=== PATIENT | male | born 1945 | race Two or more races ===

== ENCOUNTER 2023-02-05 14:10 | Inpatient (IN) | payer OTHER ==
[~2023-02-05] VITALS: Ht 170.2 cm; Wt 70.8 kg
[2023-02-05] MEDS ORDERED: CARB1TAB21 PO (15:00)
[2023-02-05] MEDS ORDERED: LISI20TA30 PO (15:00)
[2023-02-05] MEDS ORDERED: IV NS 0.9% 1,000 ML BAG IV ONE (15:00)
[2023-02-05] MEDS ORDERED: ASPI-1169 PO (15:00)
[2023-02-05] MEDS ORDERED: ATOR20TA PO (15:00)
[2023-02-05] MEDS ORDERED: TAMS-12 PO (15:00)
[2023-02-05] MEDS ORDERED: METF-440 PO (15:00)
[2023-02-05] MEDS ORDERED: METO-357 PO (15:00)
[2023-02-05] MEDS ORDERED: FLUO10TA PO (15:00)
[2023-02-05] MEDS ORDERED: CLON0.5T4 PO (15:00)
[2023-02-05] MEDS ORDERED: ALLO300T2 PO (15:00)
[2023-02-05 15:15] LABS: BASOPHILS % (AUTO) 0.8 % (0.0-2.0); EOSINOPHILS % (AUTO) 0.8 % (0.0-6.0); HEMATOCRIT 43 % (39-51); HEMOGLOBIN 13.6 g/dL (13.5-17.5); LYMPHOCYTES % (AUTO) 20.9 % (20.0-44.0); MEAN CORPUSCULAR HEMOGLOBIN 26 PG (26.0-33.0); MEAN CORPUSCULAR HGB CONC 32 g/dl (31.0-36.0); MEAN CORPUSCULAR VOLUME 81 fL (80-96); MONOCYTES # (AUTO) 0.7 K/uL (0.1-1.30); MONOCYTES % (AUTO) 14.7 % (2.0-12.0); NEUTROPHILS % (AUTO) 62.8 % (43.0-81.0); PLATELET COUNT (AUTO) 247 K/uL (150-450); RED BLOOD CELL COUNT(AUTO) 5.28 MIL/uL (4.5-6.0); RED CELL DISTRIBUTION WIDTH 16.5 % (11.5-15.0); WHITE BLOOD COUNT (AUTO) 4.9 K/uL (4.3-11.0)
[2023-02-05 15:28] LABS: CALCIUM, SERUM 9.8 mg/dL (8.5-10.1); CREATININE 1.1 mg/dL (0.6-1.3); POTASSIUM 3.7 mmol/L (3.5-5.1)
[2023-02-05 15:33] LABS: BILIRUBIN,DIRECT 0.3 mg/dL (0.0-0.2); BILIRUBIN,TOTAL 0.7 mg/dL (0.2-1.0); TOTAL PROTEIN, SERUM 8.4 g/dL (6.4-8.2)
[2023-02-05 15:59] LABS: APPEARANCE,URINE CLEAR (CLEAR); BILIRUBIN,URINE NEGATIVE (NEGATIVE); BLOOD, URINE NEGATIVE Ery/uL (NEGATIVE); COLOR,URINE YELLOW (YELLOW); KETONES,URINE TRACE mg/dL (NEGATIVE); LEUKOCYTE ESTERASE ,URINE NEGATIVE (NEGATIVE); NITRITE, URINE NEGATIVE (NEGATIVE); PROTEIN,URINE NEGATIVE (NEGATIVE); UGLUCOSE NEGATIVE (NEGATIVE)
[2023-02-05 16:11] LABS: RBC,URINE 0-2 /HPF (0-2); WBC,URINE 0-2 /HPF (0-3)
[2023-02-05 16:12] LABS: ADD URINE CULTURE NO; BACTERIA,URINE Few /HPF (None Seen); SQUAMOUS EPITHELIAL CELL,UR Few /HPF (None Seen)
[2023-02-05 22:06] VITALS: BP 186/96; TEMP 98.4; O2SAT 97
[2023-02-05 22:47] VITALS: BP 158/73
[2023-02-05] MEDS: IV LR 1000 ML 1,000 ML IV PRN (22:58)
[2023-02-05] MEDS ORDERED: Z GUARD REMEDY 4 OZ OINT TP PRN (23:00)
[2023-02-05] MEDS ORDERED: ACETAMINOPHEN 325 MG TABLET PO PRN (23:00)
[2023-02-05] MEDS ORDERED: MAGNESIUM HYDROXIDE 30 ML UDC PO PRN (23:00)
[2023-02-05] MEDS ORDERED: ONDANSETRON HCL/PF 4 MG/2 ML VIAL IVP PRN (23:00)
[2023-02-05] MEDS ORDERED: TEMAZEPAM 7.5 MG CAPSULE PO PRN (23:00)
[2023-02-05] MEDS ORDERED: DEXTROSE 50%-WATER 50 ML DISP.SYRIN IV PRN (23:00)
[2023-02-05] MEDS ORDERED: CARBIDOPA/LEVODOPA 25/100 MG 1 UDTAB PO SCH (23:00)
[2023-02-05] MEDS: ENOXAPARIN SODIUM 40 MG/0.4 ML DISP.SYRIN SQ SCH (23:10)
[2023-02-05] MEDS: INSULIN REGULAR, HUMAN 100 UNIT/ML 3 ML VIAL SQ PRN (23:21)
[2023-02-06 06:24] LABS: BASOPHILS % (AUTO) 0.6 % (0.0-2.0); HEMATOCRIT 39 % (39-51); HEMOGLOBIN 12.5 g/dL (13.5-17.5); LYMPHOCYTES # (AUTO) 1.2 K/uL (0.8-4.8); LYMPHOCYTES % (AUTO) 26.6 % (20.0-44.0); MEAN CORPUSCULAR HEMOGLOBIN 26 PG (26.0-33.0); MEAN CORPUSCULAR HGB CONC 32 g/dl (31.0-36.0); MEAN CORPUSCULAR VOLUME 81 fL (80-96); MONOCYTES # (AUTO) 0.7 K/uL (0.1-1.30); MONOCYTES % (AUTO) 15.5 % (2.0-12.0); NEUTROPHILS # (AUTO) 2.6 K/uL (1.8-8.9); NEUTROPHILS % (AUTO) 56.3 % (43.0-81.0); PLATELET COUNT (AUTO) 235 K/uL (150-450); RED BLOOD CELL COUNT(AUTO) 4.86 MIL/uL (4.5-6.0); RED CELL DISTRIBUTION WIDTH 16.3 % (11.5-15.0); WHITE BLOOD COUNT (AUTO) 4.6 K/uL (4.3-11.0)
[2023-02-06 06:47] LABS: CALCIUM, SERUM 8.9 mg/dL (8.5-10.1); CREATININE 0.9 mg/dL (0.6-1.3); MAGNESIUM 1.4 mg/dL (1.8-2.4); PHOSPHORUS 3.4 mg/dL (2.5-4.9); POTASSIUM 3.2 mmol/L (3.5-5.1)
[2023-02-06] MEDS: INSULIN REGULAR, HUMAN 100 UNIT/ML 3 ML VIAL SQ PRN ×4 (07:10→21:52)
[2023-02-06] MEDS: BLOOD SUGAR DIAGNOSTIC 1 EACH STRIP IN SCH ×4 (07:10→21:52)
[2023-02-06 07:30] VITALS: BP 152/99; TEMP 97.9; O2SAT 98
[2023-02-06] MEDS: METFORMIN 500 MG TABLET PO SCH ×2 (07:39→17:06)
[2023-02-06] MEDS: PANTOPRAZOLE 40 MG TABLET.DR PO SCH (07:39)
[2023-02-06] MEDS: TAMSULOSIN 0.4 MG CAP.SR.24H PO SCH (08:08)
[2023-02-06] MEDS: Fluoxetine 10 mg capsule PO SCH (08:08)
[2023-02-06] MEDS: ALLOPURINOL 100 MG TABLET PO SCH (08:08)
[2023-02-06] MEDS: ASPIRIN 81 MG TAB.CHEW PO SCH (08:08)
[2023-02-06] MEDS: LISINOPRIL (20MG) 20 MG TABLET PO SCH (08:09)
[2023-02-06] MEDS: METOPROLOL SUCCINATE 50 MG TAB.SR.24H PO SCH ×2 (08:09→20:24)
[2023-02-06] MEDS: ATORVASTATIN 10 MG TABLET PO SCH (08:17)
[2023-02-06] MEDS ORDERED: POTASSIUM CHLORIDE 20 MEQ POWDER PACKET PO ONE (11:00)
[2023-02-06] MEDS: Magnesium 1GM/D5W 100ML PREMIX 100 ML IV SCH ×4 (11:18→14:42)
[2023-02-06 14:21] LABS: THYROID STIMULATING HORMONE 1.286 uIU/mL (0.358-3.74)
[2023-02-06 16:00] VITALS: BP 135/70; TEMP 97.3; O2SAT 97
[2023-02-06] MEDS: GLUCERNA SHAKE 237 ML CAN PO SCH (17:06)
[2023-02-06] MEDS: IV LR 1000 ML 1,000 ML IV PRN (18:52)
[2023-02-06 20:00] VITALS: BP 136/68; TEMP 99.1; O2SAT 98
[2023-02-06] MEDS: ENOXAPARIN SODIUM 40 MG/0.4 ML DISP.SYRIN SQ SCH (20:25)
[2023-02-07] MEDS: BLOOD SUGAR DIAGNOSTIC 1 EACH STRIP IN SCH ×4 (06:49→22:25)
[2023-02-07] MEDS: INSULIN REGULAR, HUMAN 100 UNIT/ML 3 ML VIAL SQ PRN ×3 (06:49→17:11)
[2023-02-07 07:30] VITALS: BP 169/87; TEMP 99.1; O2SAT 94
[2023-02-07] MEDS: PANTOPRAZOLE 40 MG TABLET.DR PO SCH (07:49)
[2023-02-07] MEDS: GLUCERNA SHAKE 237 ML CAN PO SCH ×2 (08:15→17:10)
[2023-02-07] MEDS: ALLOPURINOL 100 MG TABLET PO SCH (08:15)
[2023-02-07] MEDS: LISINOPRIL (20MG) 20 MG TABLET PO SCH (08:16)
[2023-02-07] MEDS: ATORVASTATIN 10 MG TABLET PO SCH (08:16)
[2023-02-07] MEDS: ASPIRIN 81 MG TAB.CHEW PO SCH (08:16)
[2023-02-07] MEDS: Fluoxetine 10 mg capsule PO SCH (08:16)
[2023-02-07] MEDS: METOPROLOL SUCCINATE 50 MG TAB.SR.24H PO SCH ×2 (08:16→21:24)
[2023-02-07] MEDS: METFORMIN 500 MG TABLET PO SCH ×2 (08:16→17:11)
[2023-02-07] MEDS: TAMSULOSIN 0.4 MG CAP.SR.24H PO SCH (08:16)
[2023-02-07] MEDS: IV LR 1000 ML 1,000 ML IV PRN (10:44)
[2023-02-07] MEDS ORDERED: MAGNESIUM OXIDE 400 MG TABLET PO ONE (11:00)
[2023-02-07 16:00] VITALS: BP 137/76; TEMP 98.8; O2SAT 95
[2023-02-07 20:00] VITALS: BP 158/82; TEMP 99; O2SAT 97
[2023-02-07] MEDS: ENOXAPARIN SODIUM 40 MG/0.4 ML DISP.SYRIN SQ SCH (21:30)
[2023-02-08] MEDS: IV LR 1000 ML 1,000 ML IV PRN (02:39)
[2023-02-08] MEDS: BLOOD SUGAR DIAGNOSTIC 1 EACH STRIP IN SCH ×2 (06:37→12:50)
[2023-02-08 08:00] VITALS: BP 163/94; TEMP 99; O2SAT 98
[2023-02-08] MEDS: GLUCERNA SHAKE 237 ML CAN PO SCH (08:00)
[2023-02-08] MEDS: ALLOPURINOL 100 MG TABLET PO SCH (09:58)
[2023-02-08] MEDS: METOPROLOL SUCCINATE 50 MG TAB.SR.24H PO SCH (09:59)
[2023-02-08] MEDS: LISINOPRIL (20MG) 20 MG TABLET PO SCH (09:59)
[2023-02-08] MEDS: PANTOPRAZOLE 40 MG TABLET.DR PO SCH (09:59)
[2023-02-08] MEDS: ATORVASTATIN 10 MG TABLET PO SCH ×2 (10:00→10:04)
[2023-02-08] MEDS: TAMSULOSIN 0.4 MG CAP.SR.24H PO SCH (10:00)
[2023-02-08] MEDS: Fluoxetine 10 mg capsule PO SCH (10:00)
[2023-02-08] MEDS: METFORMIN 500 MG TABLET PO SCH (10:04)
[2023-02-08] MEDS: ASPIRIN 81 MG TAB.CHEW PO SCH (10:04)
[2023-02-08] MEDS: clonazePAM 0.5 MG TABLET PO PRN ×2 (12:44→12:45)
[2023-02-08] MEDS: INSULIN REGULAR, HUMAN 100 UNIT/ML 3 ML VIAL SQ PRN (12:52)
[2023-02-08] MEDS ORDERED: hydrALAZINE HCL 25 MG TABLET PO SCH (14:00)
[2023-02-08 16:00] VITALS: BP 171/86; TEMP 99.4; O2SAT 98
[2023-02-08 16:19] VITALS: BP 171/86
[2023-02-08] MEDS ORDERED: hydrALAZINE HCL 25 MG TABLET PO ONE (16:30)
== END 2023-02-08 17:30 | DRG 641 ==
LOC: ER 14:22 → MED 20:45
PROVIDERS: ADMIT Nurse Practitioner Family; ATTEND Internal Medicine
DX: R62.7 Adult failure to thrive (principal); E86.0 Dehydration; G20.A1 Parkinson's disease without dyskinesia, without mention of fluctuations; E11.9 Type 2 diabetes mellitus without complications; I10 Essential (primary) hypertension; Z85.46 Personal history of malignant neoplasm of prostate; Z79.82 Long term (current) use of aspirin; Z79.84 Long term (current) use of oral hypoglycemic drugs; Z79.899 Other long term (current) drug therapy; E78.5 Hyperlipidemia, unspecified; N40.0 Benign prostatic hyperplasia without lower urinary tract symptoms; F32.9 Major depressive disorder, single episode, unspecified; R41.9 Unspecified symptoms and signs involving cognitive functions and awareness
CPT/HCPCS: 36415; 71045-TC; 71250-TC; 80048-TC; 80076-TC; 81001; 82962-TC; 83735-TC; 84100-TC; 84443-TC; 85025-TC; 87081-TC; 97110-TC; 97530-TC; A4223; G0378; J1650; J1815; J3475; J7120

== ENCOUNTER 2023-03-27 19:00 | Inpatient (IN) | payer MEDICARE, OTHER ==
[~2023-03-27] VITALS: Ht 171.4 cm; Wt 69.9 kg
[~2023-03-27 19:00] MED LIST: ALLO300T2 PO; ASPI-1169 PO; ATOR20TA PO; CARB1TAB21 PO; CLON0.5T4 PO; FLUO10TA PO; LISI20TA30 PO; METF-440 PO; METO-357 PO; TAMS-12 PO
[2023-03-27 20:00] LABS: BASOPHILS % (AUTO) 0.5 % (0.0-2.0); EOSINOPHILS # (AUTO) 0.1 K/uL (0.0-0.7); EOSINOPHILS % (AUTO) 1.8 % (0.0-6.0); HEMATOCRIT 37 % (39-51); HEMOGLOBIN 11.6 g/dL (13.5-17.5); LYMPHOCYTES # (AUTO) 1.2 K/uL (0.8-4.8); LYMPHOCYTES % (AUTO) 18.9 % (20.0-44.0); MEAN CORPUSCULAR HEMOGLOBIN 26 PG (26.0-33.0); MEAN CORPUSCULAR HGB CONC 32 g/dl (31.0-36.0); MEAN CORPUSCULAR VOLUME 81 fL (80-96); MONOCYTES # (AUTO) 0.8 K/uL (0.1-1.30); MONOCYTES % (AUTO) 12.1 % (2.0-12.0); NEUTROPHILS # (AUTO) 4.4 K/uL (1.8-8.9); NEUTROPHILS % (AUTO) 66.7 % (43.0-81.0); PLATELET COUNT (AUTO) 321 K/uL (150-450); RED BLOOD CELL COUNT(AUTO) 4.54 MIL/uL (4.5-6.0); RED CELL DISTRIBUTION WIDTH 16.4 % (11.5-15.0); WHITE BLOOD COUNT (AUTO) 6.6 K/uL (4.3-11.0)
[2023-03-27 20:42] LABS: CALCIUM, SERUM 9.4 mg/dL (8.5-10.1); CARBON DIOXIDE 24 mmol/L (21-32); CHLORIDE 100 mmol/L (98-107); CREATININE 1.1 mg/dL (0.6-1.3); GLUCOSE 162 mg/dL (74-106); POTASSIUM 4.4 mmol/L (3.5-5.1); SODIUM SERUM 133 mmol/L (136-145); UREA NITROGEN, BLOOD 46 mg/dL (7-18)
[2023-03-27 20:50] LABS: APPEARANCE,URINE CLEAR (CLEAR); BILIRUBIN,URINE NEGATIVE (NEGATIVE); BLOOD, URINE NEGATIVE Ery/uL (NEGATIVE); COLOR,URINE YELLOW (YELLOW); KETONES,URINE NEGATIVE (NEGATIVE); LEUKOCYTE ESTERASE ,URINE NEGATIVE (NEGATIVE); NITRITE, URINE NEGATIVE (NEGATIVE); PH,URINE 5.5 (5.0-8.0); PROTEIN,URINE NEGATIVE (NEGATIVE); UGLUCOSE NEGATIVE (NEGATIVE); UROBILINOGEN,URINE 0.2 EU/dL (0.2)
[2023-03-27 20:50] LABS: ALANINE AMINOTRANSFERASE 12 U/L (12-78); ALBUMIN 3.3 g/dL (3.4-5.0); ALKALINE PHOSPHATASE 121 U/L (46-116); ASPARTATE AMINOTRANSFERASE 19 U/L (15-37); BILIRUBIN,DIRECT 0.1 mg/dL (0.0-0.2); BILIRUBIN,TOTAL 0.2 mg/dL (0.2-1.0); THYROID STIMULATING HORMONE 2.724 uIU/mL (0.358-3.74)
[2023-03-27] MEDS ORDERED: ASPIRIN 81 MG TAB.CHEW PO ONE (21:30)
[2023-03-27] MEDS ORDERED: ASPIRIN EC 325 MG TABLET.DR PO ONE (21:33)
[2023-03-27] MEDS ORDERED: MORPHINE SULFATE INJ 2 MG/ML DISP.SYRIN IV PRN (22:30)
[2023-03-27] MEDS ORDERED: TEMAZEPAM 15 MG CAPSULE PO PRN (22:30)
[2023-03-27] MEDS ORDERED: DEXTROSE 50%-WATER 50 ML DISP.SYRIN IV PRN (22:30)
[2023-03-27] MEDS ORDERED: ACETAMINOPHEN 325 MG TABLET PO PRN (22:30)
[2023-03-27] MEDS ORDERED: HYDROCODONE/APAP 5/325MG TABLET PO PRN (22:30)
[2023-03-27] MEDS ORDERED: Z GUARD REMEDY 4 OZ OINT TP PRN (22:30)
[2023-03-27] MEDS ORDERED: ONDANSETRON HCL/PF 4 MG/2 ML VIAL IVP PRN (22:30)
[2023-03-27] MEDS ORDERED: MAG HYDROX/AL HYDROX/SIMETH 30 ML UDC PO PRN (22:30)
[2023-03-27] MEDS ORDERED: Magnesium 1GM/D5W 100ML PREMIX 100 ML IV ONE (22:30)
[2023-03-27] MEDS ORDERED: Magnesium 1GM/D5W 100ML PREMIX PIGGYBACK IV ONE (22:30)
[2023-03-27] MEDS ORDERED: MAGNESIUM HYDROXIDE 30 ML UDC PO PRN (22:30)
[2023-03-27] MEDS: IV NS 0.9% 1,000 ML IV PRN (22:47)
[2023-03-27 23:00] VITALS: BP 137/83; TEMP 98.4; O2SAT 100
[2023-03-27] MEDS: ENOXAPARIN SODIUM 40 MG/0.4 ML DISP.SYRIN SQ SCH (23:13)
[2023-03-28 04:00] VITALS: BP 134/72; TEMP 98.6; O2SAT 100
[2023-03-28] MEDS: INSULIN REGULAR, HUMAN 100 UNIT/ML 3 ML VIAL SQ PRN ×2 (06:57→21:20)
[2023-03-28] MEDS: BLOOD SUGAR DIAGNOSTIC 1 EACH STRIP IN SCH ×4 (06:57→21:17)
[2023-03-28 07:04] LABS: BASOPHILS % (AUTO) 0.7 % (0.0-2.0); EOSINOPHILS # (AUTO) 0.1 K/uL (0.0-0.7); EOSINOPHILS % (AUTO) 1.7 % (0.0-6.0); HEMATOCRIT 36 % (39-51); HEMOGLOBIN 11.8 g/dL (13.5-17.5); LYMPHOCYTES # (AUTO) 1.2 K/uL (0.8-4.8); LYMPHOCYTES % (AUTO) 17.4 % (20.0-44.0); MEAN CORPUSCULAR HEMOGLOBIN 26 PG (26.0-33.0); MEAN CORPUSCULAR HGB CONC 32 g/dl (31.0-36.0); MEAN CORPUSCULAR VOLUME 81 fL (80-96); MONOCYTES # (AUTO) 0.9 K/uL (0.1-1.30); MONOCYTES % (AUTO) 13.2 % (2.0-12.0); NEUTROPHILS # (AUTO) 4.6 K/uL (1.8-8.9); PLATELET COUNT (AUTO) 317 K/uL (150-450); RED CELL DISTRIBUTION WIDTH 16.2 % (11.5-15.0); WHITE BLOOD COUNT (AUTO) 6.8 K/uL (4.3-11.0)
[2023-03-28 07:35] LABS: CALCIUM, SERUM 9.5 mg/dL (8.5-10.1); CARBON DIOXIDE 26 mmol/L (21-32); CHLORIDE 102 mmol/L (98-107); CREATININE 1.1 mg/dL (0.6-1.3); GLUCOSE 114 mg/dL (74-106); MAGNESIUM 2.2 mg/dL (1.8-2.4); PHOSPHORUS 3.7 mg/dL (2.5-4.9); POTASSIUM 4.9 mmol/L (3.5-5.1); SODIUM SERUM 134 mmol/L (136-145); UREA NITROGEN, BLOOD 39 mg/dL (7-18)
[2023-03-28] MEDS ORDERED: DOCU-141 PO (07:45)
[2023-03-28] MEDS ORDERED: BISA10SU11 RC (07:45)
[2023-03-28] MEDS ORDERED: INSU100V3 SQ (07:45)
[2023-03-28] MEDS ORDERED: MAGN400O6 PO (07:45)
[2023-03-28] MEDS ORDERED: SENN-261 PO (07:45)
[2023-03-28] MEDS ORDERED: CHOL100043 PO (07:45)
[2023-03-28] MEDS ORDERED: ACET-2605 PO (07:45)
[2023-03-28] MEDS ORDERED: CARB1TAB21 PO (07:45)
[2023-03-28] MEDS ORDERED: AMIN30LI2 PO (07:45)
[2023-03-28] MEDS ORDERED: NA P133E RC (07:45)
[2023-03-28] MEDS ORDERED: MULT-447 PO (07:45)
[2023-03-28 07:48] LABS: CHOLESTEROL 105 mg/dL (<200); HDL CHOLESTEROL 29 mg/dL (40-60); LDL 66 mg/dL (0-99); THYROID STIMULATING HORMONE 1.475 uIU/mL (0.358-3.74); TRIGLYCERIDES 64 mg/dL (30-150)
[2023-03-28] MEDS: PANTOPRAZOLE 40 MG TABLET.DR PO SCH (07:53)
[2023-03-28 08:00] VITALS: BP 146/85; TEMP 97.9; O2SAT 100
[2023-03-28] MEDS: ASPIRIN 81 MG TAB.CHEW PO SCH (08:01)
[2023-03-28 12:00] VITALS: BP 115/66; TEMP 98.6; O2SAT 99
[2023-03-28] MEDS: IV NS 0.9% 1,000 ML IV PRN (14:08)
[2023-03-28 16:00] VITALS: BP 149/67; TEMP 98.5; O2SAT 98
[2023-03-28 20:00] VITALS: BP 146/72; TEMP 97.5; O2SAT 98
[2023-03-28] MEDS: ENOXAPARIN SODIUM 40 MG/0.4 ML DISP.SYRIN SQ SCH (21:10)
[2023-03-29] VITALS: BP 138/69; TEMP 97.8; O2SAT 97
[2023-03-29 04:00] VITALS: BP 142/69; TEMP 98.2; O2SAT 97
[2023-03-29] MEDS: IV NS 0.9% 1,000 ML IV PRN ×2 (04:04→19:54)
[2023-03-29 07:04] LABS: BASOPHILS % (AUTO) 0.7 % (0.0-2.0); EOSINOPHILS % (AUTO) 0.8 % (0.0-6.0); HEMATOCRIT 37 % (39-51); HEMOGLOBIN 11.9 g/dL (13.5-17.5); LYMPHOCYTES # (AUTO) 1.1 K/uL (0.8-4.8); LYMPHOCYTES % (AUTO) 18.1 % (20.0-44.0); MEAN CORPUSCULAR HEMOGLOBIN 26 PG (26.0-33.0); MEAN CORPUSCULAR HGB CONC 32 g/dl (31.0-36.0); MEAN CORPUSCULAR VOLUME 81 fL (80-96); MONOCYTES # (AUTO) 0.7 K/uL (0.1-1.30); MONOCYTES % (AUTO) 12.1 % (2.0-12.0); NEUTROPHILS % (AUTO) 68.3 % (43.0-81.0); PLATELET COUNT (AUTO) 315 K/uL (150-450); RED BLOOD CELL COUNT(AUTO) 4.58 MIL/uL (4.5-6.0); RED CELL DISTRIBUTION WIDTH 16.3 % (11.5-15.0); WHITE BLOOD COUNT (AUTO) 5.8 K/uL (4.3-11.0)
[2023-03-29 07:24] LABS: CALCIUM, SERUM 9.3 mg/dL (8.5-10.1); MAGNESIUM 1.7 mg/dL (1.8-2.4); PHOSPHORUS 3.3 mg/dL (2.5-4.9); POTASSIUM 4.4 mmol/L (3.5-5.1)
[2023-03-29] MEDS: BLOOD SUGAR DIAGNOSTIC 1 EACH STRIP IN SCH ×4 (07:52→21:12)
[2023-03-29] MEDS: PANTOPRAZOLE 40 MG TABLET.DR PO SCH (07:56)
[2023-03-29 08:00] VITALS: BP 151/92; TEMP 99; O2SAT 99
[2023-03-29] MEDS: ASPIRIN 81 MG TAB.CHEW PO SCH (08:25)
[2023-03-29] MEDS ORDERED: MAGNESIUM OXIDE 400 MG TABLET PO ONE (10:30)
[2023-03-29] MEDS: INSULIN REGULAR, HUMAN 100 UNIT/ML 3 ML VIAL SQ PRN ×3 (11:38→21:11)
[2023-03-29 12:00] VITALS: BP 125/80; TEMP 98.8; O2SAT 99
[2023-03-29] MEDS ORDERED: ACETAMINOPHEN ES 500 MG TABLET PO PRN (14:30)
[2023-03-29] MEDS ORDERED: NA PHOS,M-B/NA PHOS,DI-BA 1 EA ENEMA RC PRN (14:30)
[2023-03-29] MEDS ORDERED: BISACODYL SUPP (10 MG) 10 MG/SUPP.RECT SUPP.RECT RC PRN (14:30)
[2023-03-29] MEDS ORDERED: MAGNESIUM HYDROXIDE 30 ML UDC PO PRN (14:30)
[2023-03-29 16:00] VITALS: BP 108/63; TEMP 98.7; O2SAT 94
[2023-03-29] MEDS: PROSOURCE / PROSTAT (PYXIS) 30 ML UDC PO SCH (17:29)
[2023-03-29] MEDS: DOCUSATE SODIUM 100 MG CAPSULE PO SCH (17:30)
[2023-03-29] MEDS: CARBIDOPA/LEVODOPA 25/100 MG 1 UDTAB PO SCH (17:30)
[2023-03-29 20:00] VITALS: BP 102/63; TEMP 99.9; O2SAT 94
[2023-03-29] MEDS: ENOXAPARIN SODIUM 40 MG/0.4 ML DISP.SYRIN SQ SCH (20:48)
[2023-03-29] MEDS: METOPROLOL SUCCINATE 50 MG TAB.SR.24H PO SCH (21:00)
[2023-03-29] MEDS: ATORVASTATIN 10 MG TABLET PO SCH (22:14)
[2023-03-29] MEDS: SENNOSIDES 8.6 MG TABLET PO SCH (22:15)
[2023-03-30] VITALS: BP 137/62; TEMP 99.3; O2SAT 95
[2023-03-30 04:00] VITALS: BP 135/64; TEMP 98.1; O2SAT 94
[2023-03-30] MEDS: PANTOPRAZOLE 40 MG TABLET.DR PO SCH (07:37)
[2023-03-30] MEDS: BLOOD SUGAR DIAGNOSTIC 1 EACH STRIP IN SCH ×4 (07:38→21:37)
[2023-03-30 08:00] VITALS: BP 148/88; TEMP 98.6; O2SAT 99
[2023-03-30] MEDS: ASPIRIN 81 MG TAB.CHEW PO SCH (08:16)
[2023-03-30] MEDS: CHOLECALCIFEROL 1,000 UNIT TABLET (VIT D3) PO SCH (08:16)
[2023-03-30] MEDS: METOPROLOL SUCCINATE 50 MG TAB.SR.24H PO SCH ×2 (08:18→21:19)
[2023-03-30] MEDS: ALLOPURINOL 100 MG TABLET PO SCH (08:18)
[2023-03-30] MEDS: MULTIVITAMIN/LUTEIN/MINERALS 1 TAB PO SCH (08:19)
[2023-03-30] MEDS: Fluoxetine 10 mg capsule PO SCH (08:20)
[2023-03-30] MEDS: CARBIDOPA/LEVODOPA 25/100 MG 1 UDTAB PO SCH ×3 (08:20→16:24)
[2023-03-30] MEDS: DOCUSATE SODIUM 100 MG CAPSULE PO SCH ×2 (08:20→16:24)
[2023-03-30] MEDS: LISINOPRIL (20MG) 20 MG TABLET PO SCH (08:20)
[2023-03-30] MEDS: PROSOURCE / PROSTAT (PYXIS) 30 ML UDC PO SCH ×2 (08:22→16:21)
[2023-03-30 09:52] LABS: THYROID STIMULATING HORMONE 1.109 uIU/mL (0.358-3.74)
[2023-03-30 12:00] VITALS: BP 133/83; TEMP 98.2; O2SAT 96
[2023-03-30] MEDS: INSULIN REGULAR, HUMAN 100 UNIT/ML 3 ML VIAL SQ PRN ×2 (12:12→22:13)
[2023-03-30 16:00] VITALS: BP 132/76; TEMP 98.8; O2SAT 96
[2023-03-30 20:00] VITALS: BP 117/74; TEMP 97.8; O2SAT 99
[2023-03-30] MEDS: ATORVASTATIN 10 MG TABLET PO SCH (21:18)
[2023-03-30] MEDS: SENNOSIDES 8.6 MG TABLET PO SCH (21:18)
[2023-03-30] MEDS: ENOXAPARIN SODIUM 40 MG/0.4 ML DISP.SYRIN SQ SCH (22:13)
[2023-03-31] VITALS: BP 131/80; TEMP 98.1; O2SAT 97
[2023-03-31 04:00] VITALS: BP 147/86; TEMP 97.9; O2SAT 97
[2023-03-31] MEDS: IV NS 0.9% 1,000 ML IV PRN ×2 (04:11→17:55)
[2023-03-31] MEDS: INSULIN REGULAR, HUMAN 100 UNIT/ML 3 ML VIAL SQ PRN ×3 (06:30→17:31)
[2023-03-31] MEDS: BLOOD SUGAR DIAGNOSTIC 1 EACH STRIP IN SCH ×4 (06:30→21:18)
[2023-03-31 07:04] LABS: BASOPHILS % (AUTO) 0.8 % (0.0-2.0); EOSINOPHILS # (AUTO) 0.1 K/uL (0.0-0.7); EOSINOPHILS % (AUTO) 1.7 % (0.0-6.0); HEMATOCRIT 35 % (39-51); HEMOGLOBIN 11.3 g/dL (13.5-17.5); LYMPHOCYTES # (AUTO) 0.9 K/uL (0.8-4.8); LYMPHOCYTES % (AUTO) 16.3 % (20.0-44.0); MEAN CORPUSCULAR HEMOGLOBIN 26 PG (26.0-33.0); MEAN CORPUSCULAR HGB CONC 33 g/dl (31.0-36.0); MEAN CORPUSCULAR VOLUME 80 fL (80-96); MONOCYTES # (AUTO) 0.7 K/uL (0.1-1.30); MONOCYTES % (AUTO) 12.5 % (2.0-12.0); NEUTROPHILS % (AUTO) 68.7 % (43.0-81.0); PLATELET COUNT (AUTO) 293 K/uL (150-450); RED BLOOD CELL COUNT(AUTO) 4.31 MIL/uL (4.5-6.0); RED CELL DISTRIBUTION WIDTH 16.5 % (11.5-15.0); WHITE BLOOD COUNT (AUTO) 5.8 K/uL (4.3-11.0)
[2023-03-31 07:31] LABS: CALCIUM, SERUM 9.1 mg/dL (8.5-10.1); CHLORIDE 102 mmol/L (98-107); GLUCOSE 128 mg/dL (74-106); MAGNESIUM 1.7 mg/dL (1.8-2.4); PHOSPHORUS 3.8 mg/dL (2.5-4.9); POTASSIUM 4.6 mmol/L (3.5-5.1); SODIUM SERUM 137 mmol/L (136-145); UREA NITROGEN, BLOOD 27 mg/dL (7-18)
[2023-03-31 07:50] LABS: CARBON DIOXIDE 23 mmol/L (21-32)
[2023-03-31 08:00] VITALS: BP 152/86; TEMP 98.6; O2SAT 97
[2023-03-31] MEDS: MULTIVITAMIN/LUTEIN/MINERALS 1 TAB PO SCH (08:32)
[2023-03-31] MEDS: CHOLECALCIFEROL 1,000 UNIT TABLET (VIT D3) PO SCH (08:32)
[2023-03-31] MEDS: ASPIRIN 81 MG TAB.CHEW PO SCH (08:32)
[2023-03-31] MEDS: PANTOPRAZOLE 40 MG TABLET.DR PO SCH (08:32)
[2023-03-31] MEDS: DOCUSATE SODIUM 100 MG CAPSULE PO SCH ×2 (08:32→16:01)
[2023-03-31] MEDS: METOPROLOL SUCCINATE 50 MG TAB.SR.24H PO SCH ×2 (08:33→21:09)
[2023-03-31] MEDS: ALLOPURINOL 100 MG TABLET PO SCH (08:33)
[2023-03-31] MEDS: CARBIDOPA/LEVODOPA 25/100 MG 1 UDTAB PO SCH ×3 (08:33→16:01)
[2023-03-31] MEDS: LISINOPRIL (20MG) 20 MG TABLET PO SCH (08:33)
[2023-03-31] MEDS: PROSOURCE / PROSTAT (PYXIS) 30 ML UDC PO SCH ×2 (08:37→16:01)
[2023-03-31] MEDS: Fluoxetine 10 mg capsule PO SCH (08:37)
[2023-03-31] MEDS ORDERED: MAGNESIUM OXIDE 400 MG TABLET PO ONE (10:30)
[2023-03-31 12:00] VITALS: BP 113/77; TEMP 99; O2SAT 98
[2023-03-31 16:00] VITALS: BP 105/70; TEMP 98.7; O2SAT 97
[2023-03-31 17:41] LABS: IRON, SERUM 28 ug/dl (50-175); TOTAL IRON BINDING CAPACITY 189 ug/dl (250-450)
[2023-03-31 17:44] LABS: INR 1.06 (0.91-1.10); PROTHROMBIN TIME 11.2 SECS (9.2-11.1)
[2023-03-31 18:09] LABS: FERRITIN 297 ng/mL (8-388)
[2023-03-31 19:49] LABS: OCCULT BLOOD STOOL NEGATIVE (NEGATIVE)
[2023-03-31 20:00] VITALS: BP 126/79; TEMP 98; O2SAT 99
[2023-03-31] MEDS: ENOXAPARIN SODIUM 40 MG/0.4 ML DISP.SYRIN SQ SCH (21:00)
[2023-03-31] MEDS: ATORVASTATIN 10 MG TABLET PO SCH (21:09)
[2023-03-31] MEDS: SENNOSIDES 8.6 MG TABLET PO SCH (21:09)
[2023-04-01] MEDS: INSULIN REGULAR, HUMAN 100 UNIT/ML 3 ML VIAL SQ PRN (00:48)
[2023-04-01 04:00] VITALS: BP 130/79; TEMP 98.4; O2SAT 99
[2023-04-01] MEDS: IV NS 0.9% 1,000 ML IV PRN (06:26)
[2023-04-01 06:51] LABS: BASOPHILS % (AUTO) 0.5 % (0.0-2.0); EOSINOPHILS # (AUTO) 0.1 K/uL (0.0-0.7); EOSINOPHILS % (AUTO) 2.4 % (0.0-6.0); HEMATOCRIT 34 % (39-51); HEMOGLOBIN 11.1 g/dL (13.5-17.5); LYMPHOCYTES % (AUTO) 16.3 % (20.0-44.0); MEAN CORPUSCULAR HEMOGLOBIN 26 PG (26.0-33.0); MEAN CORPUSCULAR HGB CONC 33 g/dl (31.0-36.0); MEAN CORPUSCULAR VOLUME 80 fL (80-96); MONOCYTES # (AUTO) 0.8 K/uL (0.1-1.30); MONOCYTES % (AUTO) 13.8 % (2.0-12.0); NEUTROPHILS # (AUTO) 3.9 K/uL (1.8-8.9); PLATELET COUNT (AUTO) 287 K/uL (150-450); RED BLOOD CELL COUNT(AUTO) 4.24 MIL/uL (4.5-6.0); WHITE BLOOD COUNT (AUTO) 5.9 K/uL (4.3-11.0)
[2023-04-01 07:10] LABS: CALCIUM, SERUM 8.8 mg/dL (8.5-10.1); CREATININE 1.1 mg/dL (0.6-1.3); POTASSIUM 4.2 mmol/L (3.5-5.1)
[2023-04-01 07:15] LABS: MAGNESIUM 1.6 mg/dL (1.8-2.4); PHOSPHORUS 3.8 mg/dL (2.5-4.9)
[2023-04-01 08:00] VITALS: BP 179/86; TEMP 98.6; O2SAT 99
[2023-04-01] MEDS: BLOOD SUGAR DIAGNOSTIC 1 EACH STRIP IN SCH ×3 (08:26→17:24)
[2023-04-01] MEDS: CHOLECALCIFEROL 1,000 UNIT TABLET (VIT D3) PO SCH (08:38)
[2023-04-01] MEDS: CARBIDOPA/LEVODOPA 25/100 MG 1 UDTAB PO SCH ×3 (08:38→17:28)
[2023-04-01] MEDS: PANTOPRAZOLE 40 MG TABLET.DR PO SCH (08:38)
[2023-04-01] MEDS: DOCUSATE SODIUM 100 MG CAPSULE PO SCH ×2 (08:38→17:28)
[2023-04-01] MEDS: METOPROLOL SUCCINATE 50 MG TAB.SR.24H PO SCH (08:38)
[2023-04-01] MEDS: Fluoxetine 10 mg capsule PO SCH (08:38)
[2023-04-01] MEDS: ASPIRIN 81 MG TAB.CHEW PO SCH (08:39)
[2023-04-01] MEDS: MULTIVITAMIN/LUTEIN/MINERALS 1 TAB PO SCH (08:39)
[2023-04-01] MEDS: LISINOPRIL (20MG) 20 MG TABLET PO SCH (08:39)
[2023-04-01] MEDS: ALLOPURINOL 100 MG TABLET PO SCH (08:39)
[2023-04-01] MEDS: PROSOURCE / PROSTAT (PYXIS) 30 ML UDC PO SCH ×2 (08:39→17:25)
[2023-04-01 09:09] LABS: IMMUNOGLOBULIN A, SERUM 306 mg/dL (61-437); IMMUNOGLOBULIN G, SERUM 1502 mg/dL (603-1613); IMMUNOGLOBULIN M, SERUM 42 mg/dL (15-143)
[2023-04-01] MEDS ORDERED: MAGNESIUM OXIDE 400 MG TABLET PO ONE (10:00)
[2023-04-01] MEDS ORDERED: CARBIDOPA/LEVODOPA 25/100 MG 1 UDTAB PO SCH (11:24)
[2023-04-01 12:11] LABS: FREE KAPPA LT CHAINS SERUM 56.5 mg/L (3.3-19.4); FREE LAMBDA LT CHAIN SERUM 41.4 mg/L (5.7-26.3); KAPPA/LAMBDA RATIO SERUM 1.36 (0.26-1.65)
[2023-04-01 14:08] LABS: *THYROGLOBULIN 931.7 IU/mL (0.0-0.9)
[2023-04-01] MEDS ORDERED: IOHEXOL-300 100 ML VIAL IV ONE (14:09)
[2023-04-01] MEDS ORDERED: IV NS 0.9% 250 ML IV ONE (14:09)
[2023-04-01 16:00] VITALS: BP 134/79; TEMP 97.8; O2SAT 97
[2023-04-02 07:06] LABS: *SPE A/G RATIO 0.7 (0.7-1.7); *SPE ALBUMIN 2.8 g/dL (2.9-4.4); *SPE ALPHA-1-GLOBULIN 0.2 g/dL (0.0-0.4); *SPE ALPHA-2-GLOBULIN 0.9 g/dL (0.4-1.0); *SPE GLOBULIN, TOTAL 3.8 g/dL (2.2-3.9); *SPE M-SPIKE Not Observed g/dL (Not Observed); *SPE PROTEIN TOTAL 6.6 g/dL (6.0-8.5); *SPEGAMMA GLOBULIN 1.6 g/dL (0.4-1.8)
== END 2023-04-01 18:15 | DRG 641 ==
LOC: ER 19:20 → TELE1 21:57 → MEDSG1 03-31 17:48
PROVIDERS: ADMIT Nurse Practitioner Acute Care
DX: E86.0 Dehydration (principal); G20.A1 Parkinson's disease without dyskinesia, without mention of fluctuations; N40.0 Benign prostatic hyperplasia without lower urinary tract symptoms; F32.A Depression, unspecified; Z20.822 Contact with and (suspected) exposure to COVID-19; E78.5 Hyperlipidemia, unspecified; E11.9 Type 2 diabetes mellitus without complications; I10 Essential (primary) hypertension; F41.9 Anxiety disorder, unspecified; R62.7 Adult failure to thrive; I25.10 Atherosclerotic heart disease of native coronary artery without angina pectoris; Z79.84 Long term (current) use of oral hypoglycemic drugs; Z79.82 Long term (current) use of aspirin; Z79.899 Other long term (current) drug therapy; R79.89 Other specified abnormal findings of blood chemistry; E83.42 Hypomagnesemia; M10.9 Gout, unspecified; E04.2 Nontoxic multinodular goiter; D50.9 Iron deficiency anemia, unspecified; R94.31 Abnormal electrocardiogram [ECG] [EKG]
CPT/HCPCS: 36415; 70491-TC; 71045-TC; 71260-TC; 76536-TC; 80048-TC; 80061-TC; 80076-TC; 82272-TC; 82607-TC; 82728-TC; 82784; 82962-TC; 83540-TC; 83735-TC; 84100-TC; 84155; 84165; 84439-TC; 84443-TC; 84484-TC; 85025-TC; 85610-TC; 86334; 87081-TC; 87086-TC; 93307-TC; 97110-TC; 97116-TC; 97530-TC; G0378; J1650; J1815; J3475; J7030; J7050; Q9967

== ENCOUNTER 2023-10-03 19:03 | Inpatient (IN) | payer MEDICARE, OTHER ==
[~2023-10-03] VITALS: Ht 170.2 cm; Wt 67.1 kg
[~2023-10-03 19:03] MED LIST changes: +ACET-2605 PO; +AMIN30LI2 PO; +BISA10SU11 RC; +CHOL100043 PO; -CLON0.5T4 PO; +DOCU-141 PO; +INSU100V3 SQ; +MAGN400O6 PO; +MULT-447 PO; +NA P133E RC; +SENN-261 PO; -TAMS-12 PO
[2023-10-03 21:17] LABS: BASOPHILS # (AUTO) 0.1 K/uL (0.0-0.2); BASOPHILS % (AUTO) 0.6 % (0.0-2.0); EOSINOPHILS # (AUTO) 0.3 K/uL (0.0-0.7); EOSINOPHILS % (AUTO) 2.9 % (0.0-6.0); HEMATOCRIT 35 % (39-51); HEMOGLOBIN 11.4 g/dL (13.5-17.5); LYMPHOCYTES # (AUTO) 0.9 K/uL (0.8-4.8); LYMPHOCYTES % (AUTO) 9.5 % (20.0-44.0); MEAN CORPUSCULAR HEMOGLOBIN 26 PG (26.0-33.0); MEAN CORPUSCULAR HGB CONC 33 g/dl (31.0-36.0); MEAN CORPUSCULAR VOLUME 78 fL (80-96); MONOCYTES # (AUTO) 1.4 K/uL (0.1-1.30); MONOCYTES % (AUTO) 14.9 % (2.0-12.0); NEUTROPHILS # (AUTO) 6.6 K/uL (1.8-8.9); NEUTROPHILS % (AUTO) 72.1 % (43.0-81.0); PLATELET COUNT (AUTO) 356 K/uL (150-450); RED BLOOD CELL COUNT(AUTO) 4.49 MIL/uL (4.5-6.0); RED CELL DISTRIBUTION WIDTH 17.5 % (11.5-15.0); WHITE BLOOD COUNT (AUTO) 9.1 K/uL (4.3-11.0)
[2023-10-03 21:31] LABS: ALANINE AMINOTRANSFERASE 17 U/L (12-78); ALBUMIN 2.7 g/dL (3.4-5.0); ALKALINE PHOSPHATASE 119 U/L (46-116); ASPARTATE AMINOTRANSFERASE 17 U/L (15-37); BILIRUBIN,DIRECT 0.5 mg/dL (0.0-0.2); CALCIUM, SERUM 9.4 mg/dL (8.5-10.1); CARBON DIOXIDE 22 mmol/L (21-32); CHLORIDE 103 mmol/L (98-107); CREATININE 1.5 mg/dL (0.6-1.3); GLUCOSE 137 mg/dL (74-106); LIPASE 45 U/L (16-77); POTASSIUM 4.1 mmol/L (3.5-5.1); SODIUM SERUM 139 mmol/L (136-145); UREA NITROGEN, BLOOD 55 mg/dL (7-18)
[2023-10-03 22:15] LABS: APPEARANCE,URINE CLEAR (CLEAR); BILIRUBIN,URINE NEGATIVE (NEGATIVE); BLOOD, URINE TRACE-INTA Ery/uL (NEGATIVE); COLOR,URINE YELLOW (YELLOW); KETONES,URINE TRACE mg/dL (NEGATIVE); LEUKOCYTE ESTERASE ,URINE 1+ (NEGATIVE); NITRITE, URINE POSITIVE (NEGATIVE); PH,URINE 5.5 (5.0-8.0); PROTEIN,URINE TRACE mg/dl (NEGATIVE); UGLUCOSE NEGATIVE (NEGATIVE)
[2023-10-03] MEDS ORDERED: ONDANSETRON HCL/PF 4 MG/2 ML VIAL IVP PRN (22:30)
[2023-10-03] MEDS ORDERED: BISACODYL SUPP (10 MG) 10 MG/SUPP.RECT SUPP.RECT RC PRN (22:30)
[2023-10-03] MEDS ORDERED: MAG HYDROX/AL HYDROX/SIMETH 30 ML UDC PO PRN (22:30)
[2023-10-03] MEDS ORDERED: Z GUARD REMEDY 4 OZ OINT TP PRN (22:30)
[2023-10-03] MEDS ORDERED: MAGNESIUM HYDROXIDE 30 ML UDC PO PRN ×2 (22:30)
[2023-10-03 23:16] LABS: APPEARANCE,URINE CLEAR (CLEAR); BILIRUBIN,URINE NEGATIVE (NEGATIVE); BLOOD, URINE TRACE Ery/uL (NEGATIVE); COLOR,URINE YELLOW (YELLOW); KETONES,URINE TRACE mg/dL (NEGATIVE); LEUKOCYTE ESTERASE ,URINE 1+ (NEGATIVE); NITRITE, URINE POSITIVE (NEGATIVE); PH,URINE 5.5 (5.0-8.0); PROTEIN,URINE NEGATIVE (NEGATIVE); UGLUCOSE NEGATIVE (NEGATIVE)
[2023-10-03 23:20] VITALS: BP 113/64; TEMP 98.4; O2SAT 97
[2023-10-03 23:46] LABS: ADD URINE CULTURE YES; BACTERIA,URINE 2+ /HPF (None Seen)
[2023-10-03 23:47] LABS: OTHER CASTS, URINE WBC CASTS 1+ /LPF (None Seen); WBC,URINE 21-50 /HPF (0-3)
[2023-10-04] MEDS ORDERED: CEFTRIAXONE 1GM BAG (ER ONLY) 1 GM/50 ML PIGGYBACK IV ONE
[2023-10-04] MEDS: IV NS 0.9% 1,000 ML IV SCH (00:34)
[2023-10-04] MEDS: ENOXAPARIN SODIUM 40 MG/0.4 ML DISP.SYRIN SQ SCH (00:40)
[2023-10-04] MEDS ORDERED: CEFTRIAXONE 1GM BAG (ER ONLY) 50 ML IV ONE (03:08)
[2023-10-04] MEDS: CEFTRIAXONE 1 G in IV D5W 50 ML IV ONE (03:27)
[2023-10-04 07:30] VITALS: BP 113/68; TEMP 97.9; O2SAT 99
[2023-10-04 07:38] LABS: BASOPHILS # (AUTO) 0.1 K/uL (0.0-0.2); BASOPHILS % (AUTO) 0.7 % (0.0-2.0); EOSINOPHILS # (AUTO) 0.2 K/uL (0.0-0.7); EOSINOPHILS % (AUTO) 1.9 % (0.0-6.0); HEMATOCRIT 34 % (39-51); LYMPHOCYTES # (AUTO) 0.6 K/uL (0.8-4.8); LYMPHOCYTES % (AUTO) 6.9 % (20.0-44.0); MEAN CORPUSCULAR HEMOGLOBIN 25 PG (26.0-33.0); MEAN CORPUSCULAR HGB CONC 32 g/dl (31.0-36.0); MEAN CORPUSCULAR VOLUME 78 fL (80-96); MONOCYTES # (AUTO) 1.3 K/uL (0.1-1.30); NEUTROPHILS # (AUTO) 6.6 K/uL (1.8-8.9); NEUTROPHILS % (AUTO) 75.5 % (43.0-81.0); PLATELET COUNT (AUTO) 362 K/uL (150-450); RED BLOOD CELL COUNT(AUTO) 4.39 MIL/uL (4.5-6.0); WHITE BLOOD COUNT (AUTO) 8.7 K/uL (4.3-11.0)
[2023-10-04] MEDS ORDERED: DUTA1CPM4 PO (08:16)
[2023-10-04] MEDS ORDERED: ACET-868 PO (08:16)
[2023-10-04] MEDS ORDERED: FERR-68 PO (08:16)
[2023-10-04 08:24] LABS: CALCIUM, SERUM 9.1 mg/dL (8.5-10.1); CARBON DIOXIDE 22 mmol/L (21-32); CHLORIDE 105 mmol/L (98-107); CREATININE 1.4 mg/dL (0.6-1.3); GLUCOSE 138 mg/dL (74-106); MAGNESIUM 1.9 mg/dL (1.8-2.4); PHOSPHORUS 3.3 mg/dL (2.5-4.9); SODIUM SERUM 139 mmol/L (136-145); UREA NITROGEN, BLOOD 54 mg/dL (7-18)
[2023-10-04] MEDS: Fluoxetine 10 mg capsule PO SCH (08:28)
[2023-10-04] MEDS: MULTIVIT W/MINERALS 1 TAB TABLET PO SCH (08:29)
[2023-10-04] MEDS: ASPIRIN 81 MG TAB.CHEW PO SCH (08:29)
[2023-10-04] MEDS: METOPROLOL SUCCINATE 50 MG TAB.SR.24H PO SCH (08:29)
[2023-10-04] MEDS: CHOLECALCIFEROL 1,000 UNIT TABLET (VIT D3) PO SCH (08:29)
[2023-10-04] MEDS: DOCUSATE SODIUM 100 MG CAPSULE PO SCH (08:29)
[2023-10-04] MEDS: PROSOURCE / PROSTAT (PYXIS) 30 ML UDC PO SCH (08:30)
[2023-10-04] MEDS: ALLOPURINOL 100 MG TABLET PO SCH (08:30)
[2023-10-04] MEDS: CARBIDOPA/LEVODOPA 25/100 MG 1 UDTAB PO SCH ×2 (08:30→12:58)
[2023-10-04 10:49] LABS: ADD URINE CULTURE YES; BACTERIA,URINE Few /HPF (None Seen); SQUAMOUS EPITHELIAL CELL,UR Rare /HPF (None Seen)
[2023-10-04] MEDS ORDERED: ACETAMINOPHEN ES 500 MG TABLET PO PRN (11:00)
[2023-10-04] MEDS ORDERED: HOME MED MISCELLANEOUS XX SCH (11:00)
[2023-10-04] MEDS ORDERED: NA PHOS,M-B/NA PHOS,DI-BA 1 EA ENEMA RC PRN (11:00)
[2023-10-04] MEDS ORDERED: DEXTROSE 50%-WATER 50 ML DISP.SYRIN IV PRN (11:00)
[2023-10-04] MEDS ORDERED: ACETAMINOPHEN 325 MG TABLET PO PRN (11:00)
[2023-10-04] MEDS: INSULIN REGULAR, HUMAN 100 UNIT/ML 3 ML VIAL SQ PRN (12:35)
[2023-10-04] MEDS: BLOOD SUGAR DIAGNOSTIC 1 EACH STRIP IN SCH (12:36)
[2023-10-04 16:00] VITALS: BP 107/67; TEMP 98.2; O2SAT 98
[2023-10-04] MEDS: IV NS 0.9% 1,000 ML IV PRN (16:12)
[2023-10-04] MEDS: MEGESTROL ACETATE SUSP 400 MG/10 ML UDC PO SCH (16:44)
[2023-10-04] MEDS: FERROUS SULFATE (325 MG) 325 MG/TAB TABLET PO SCH (16:45)
[2023-10-04] MEDS: GLUCERNA SHAKE 237 ML CAN PO SCH (17:16)
[2023-10-04 20:00] VITALS: BP 97/58; TEMP 97.2; O2SAT 97
[2023-10-04] MEDS: TAMSULOSIN 0.4 MG CAP.SR.24H PO SCH (21:25)
[2023-10-04] MEDS: CEFTRIAXONE 1 G in IV D5W 50 ML IV SCH (21:25)
[2023-10-04] MEDS: DUTASTERIDE (0.5 MG) 0.5 MG CAPSULE PO SCH (21:26)
[2023-10-04] MEDS: ATORVASTATIN 10 MG TABLET PO SCH (21:26)
[2023-10-04] MEDS: SENNOSIDES 8.6 MG TABLET PO SCH (21:26)
[2023-10-05 07:30] VITALS: BP 122/72; TEMP 98.2; O2SAT 100
[2023-10-05 07:52] LABS: BASOPHILS % (AUTO) 0.6 % (0.0-2.0); EOSINOPHILS # (AUTO) 0.3 K/uL (0.0-0.7); EOSINOPHILS % (AUTO) 3.8 % (0.0-6.0); HEMATOCRIT 34 % (39-51); HEMOGLOBIN 10.9 g/dL (13.5-17.5); LYMPHOCYTES % (AUTO) 12.6 % (20.0-44.0); MEAN CORPUSCULAR HEMOGLOBIN 26 PG (26.0-33.0); MEAN CORPUSCULAR HGB CONC 33 g/dl (31.0-36.0); MEAN CORPUSCULAR VOLUME 80 fL (80-96); MONOCYTES # (AUTO) 1.1 K/uL (0.1-1.30); MONOCYTES % (AUTO) 14.6 % (2.0-12.0); NEUTROPHILS # (AUTO) 5.3 K/uL (1.8-8.9); NEUTROPHILS % (AUTO) 68.4 % (43.0-81.0); PLATELET COUNT (AUTO) 329 K/uL (150-450); RED BLOOD CELL COUNT(AUTO) 4.21 MIL/uL (4.5-6.0); RED CELL DISTRIBUTION WIDTH 17.4 % (11.5-15.0); WHITE BLOOD COUNT (AUTO) 7.8 K/uL (4.3-11.0)
[2023-10-05 08:00] LABS: ALANINE AMINOTRANSFERASE 7 U/L (12-78); ALBUMIN 2.3 g/dL (3.4-5.0); ALKALINE PHOSPHATASE 110 U/L (46-116); ASPARTATE AMINOTRANSFERASE 15 U/L (15-37); BILIRUBIN,TOTAL 0.6 mg/dL (0.2-1.0); CALCIUM, SERUM 8.7 mg/dL (8.5-10.1); CARBON DIOXIDE 21 mmol/L (21-32); CHLORIDE 109 mmol/L (98-107); GLUCOSE 116 mg/dL (74-106); MAGNESIUM 2.1 mg/dL (1.8-2.4); PHOSPHORUS 2.4 mg/dL (2.5-4.9); POTASSIUM 3.7 mmol/L (3.5-5.1); SODIUM SERUM 141 mmol/L (136-145); TOTAL PROTEIN, SERUM 7.3 g/dL (6.4-8.2); UREA NITROGEN, BLOOD 43 mg/dL (7-18)
[2023-10-05 08:21] LABS: CREATINE KINASE, TOTAL 51 U/L (39-308)
[2023-10-05] MEDS: LISINOPRIL (20MG) 20 MG TABLET PO SCH (08:57)
[2023-10-05] MEDS: ACETAMINOPHEN 325 MG TABLET PO PRN (15:00)
[2023-10-05 16:00] VITALS: BP 128/73; TEMP 98.1; O2SAT 100
[2023-10-05] MEDS: K PHOS NEUTRAL 250 MG TABLET PO ONE (16:55)
[2023-10-05 20:00] VITALS: BP 108/64; TEMP 98.4; O2SAT 100; O2SAT 97
[2023-10-06 07:02] LABS: BASOPHILS % (AUTO) 0.7 % (0.0-2.0); EOSINOPHILS # (AUTO) 0.2 K/uL (0.0-0.7); EOSINOPHILS % (AUTO) 2.7 % (0.0-6.0); HEMATOCRIT 32 % (39-51); LYMPHOCYTES # (AUTO) 0.7 K/uL (0.8-4.8); LYMPHOCYTES % (AUTO) 11.5 % (20.0-44.0); MEAN CORPUSCULAR HEMOGLOBIN 25 PG (26.0-33.0); MEAN CORPUSCULAR HGB CONC 32 g/dl (31.0-36.0); MEAN CORPUSCULAR VOLUME 79 fL (80-96); MONOCYTES % (AUTO) 16.3 % (2.0-12.0); NEUTROPHILS # (AUTO) 4.3 K/uL (1.8-8.9); NEUTROPHILS % (AUTO) 68.8 % (43.0-81.0); PLATELET COUNT (AUTO) 304 K/uL (150-450); RED CELL DISTRIBUTION WIDTH 17.5 % (11.5-15.0); WHITE BLOOD COUNT (AUTO) 6.3 K/uL (4.3-11.0)
[2023-10-06 07:18] LABS: CALCIUM, SERUM 8.2 mg/dL (8.5-10.1); CARBON DIOXIDE 23 mmol/L (21-32); CHLORIDE 110 mmol/L (98-107); CREATININE 0.8 mg/dL (0.6-1.3); GLUCOSE 137 mg/dL (74-106); POTASSIUM 3.5 mmol/L (3.5-5.1); SODIUM SERUM 142 mmol/L (136-145); UREA NITROGEN, BLOOD 21 mg/dL (7-18)
[2023-10-06 08:33] VITALS: BP 138/77
[2023-10-06 10:14] LABS: ANISOCYTOSIS 1+; BASOPHILS % (MANUAL) 0 % (0.0-2.0); EOSINOPHILS % (MANUAL) 3 % (0-4); LYMPHOCYTES % (MANUAL) 10 % (16-48); MONOCYTES % (MANUAL) 14 % (0-11.0); NEUTROPHILS % (MANUAL) 73 (42-76); OVALOCYTES 1+; PLATELET ESTIMATE ADEQUATE
[2023-10-06] MEDS ORDERED: K PHOS NEUTRAL 250 MG TABLET PO ONE (16:00)
[2023-10-07 06:09] LABS: PTH, INTACT 12 pg/mL (15-65)
[2023-10-07 10:10] LABS: *SPE A/G RATIO 0.7 (0.7-1.7); *SPE ALBUMIN 2.7 g/dL (2.9-4.4); *SPE ALPHA-1-GLOBULIN 0.3 g/dL (0.0-0.4); *SPE ALPHA-2-GLOBULIN 0.9 g/dL (0.4-1.0); *SPE BETA GLOBULIN 0.9 g/dL (0.7-1.3); *SPE GLOBULIN, TOTAL 3.9 g/dL (2.2-3.9); *SPE M-SPIKE Not Observed g/dL (Not Observed); *SPE PROTEIN TOTAL 6.6 g/dL (6.0-8.5); *SPEGAMMA GLOBULIN 1.7 g/dL (0.4-1.8)
== END 2023-10-06 13:50 | DRG 640 ==
LOC: ER 20:16 → MED 22:47
PROVIDERS: ADMIT Nurse Practitioner Acute Care; ATTEND Nurse Practitioner Acute Care
DX: R62.7 Adult failure to thrive (principal); G93.41 Metabolic encephalopathy; N17.0 Acute kidney failure with tubular necrosis; D68.59 Other primary thrombophilia; N39.0 Urinary tract infection, site not specified; F02.84 Dementia in other diseases classified elsewhere, unspecified severity, with anxiety; F02.83 Dementia in other diseases classified elsewhere, unspecified severity, with mood disturbance; E44.0 Moderate protein-calorie malnutrition; N18.9 Chronic kidney disease, unspecified; F32.A Depression, unspecified; F41.9 Anxiety disorder, unspecified; K21.9 Gastro-esophageal reflux disease without esophagitis; E11.22 Type 2 diabetes mellitus with diabetic chronic kidney disease; G20.A1 Parkinson's disease without dyskinesia, without mention of fluctuations; I12.9 Hypertensive chronic kidney disease with stage 1 through stage 4 chronic kidney disease, or unspecified chronic kidney disease; E78.5 Hyperlipidemia, unspecified; E86.9 Volume depletion, unspecified; E88.09 Other disorders of plasma-protein metabolism, not elsewhere classified; D64.9 Anemia, unspecified; M89.8X9 Other specified disorders of bone, unspecified site; N40.0 Benign prostatic hyperplasia without lower urinary tract symptoms; Z79.84 Long term (current) use of oral hypoglycemic drugs; Z79.4 Long term (current) use of insulin; Z79.899 Other long term (current) drug therapy; Z79.82 Long term (current) use of aspirin; B96.89 Other specified bacterial agents as the cause of diseases classified elsewhere; Z74.09 Other reduced mobility; M10.9 Gout, unspecified
CPT/HCPCS: 36415; 71045-TC; 76770-TC; 80048-TC; 80053-TC; 80076-TC; 81001; 82550-TC; 82962-TC; 83690-TC; 83735-TC; 83970; 84100-TC; 84155; 84165; 84484-TC; 85025-TC; 87081-TC; 97110-TC; 97530-TC; A4223; G0378; J0696; J1650; J1815; J7030; J7042; J7060